=== PATIENT | male | born 1955 | race Caucasian/White ===

== ENCOUNTER 2022-02-25 09:58 | Emergency (ER) | payer BC ==
[2022-02-25] MEDS ORDERED: Sodium Chloride 0.9% 10 ML Syringe FLUSH PRN (10:28)
[2022-02-25 11:37] LABS: CORONAVIRUS COVID-19 NAA NEGATIVE (NEGATIVE)
[2022-02-25] MEDS ORDERED: Potassium Chloride 20 MEQ Tab.ER PO ONE (12:43)
[2022-02-25] MEDS ORDERED: Furosemide 20 MG Tab PO ONE (12:44)
== END 2022-02-25 14:36 | disposition home or self-care (01) ==
LOC: JD.ED 09:58
DX: K74.60 Unspecified cirrhosis of liver (principal); R18.8 Other ascites; R06.02 Shortness of breath; Z87.891 Personal history of nicotine dependence; Z20.822 Contact with and (suspected) exposure to COVID-19
CPT/HCPCS: 0241U; 36415; 71045; 80053; 80307; 83735; 83880; 84484; 85025; 85379; 93005; 99285; A9270; J3490